=== PATIENT | female | born 1990 | race Caucasian/White ===

== ENCOUNTER 2020-11-23 09:58 | Emergency (ER) | payer SELFPAY ==
[2020-11-23 10:02] VITALS: BP 149/68; PULSE 102; RESP 20; TEMP 36.6; O2SAT 99; BMI 28.3
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
[2020-11-23] MEDS: Ibuprofen 600 MG Tablet PO (11:07)
[2020-11-23] MEDS: Ondansetron ODT 4 MG Tablet 8 MG PO (11:07)
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
[2020-11-23] MEDS: traMADol 50 MG Tablet PO (13:02)
[2020-11-23 13:04] VITALS: BP 134/92; PULSE 68; RESP 17
== END 2020-11-23 13:10 | disposition home or self-care (01) ==
PROVIDERS: Emergency Provider Emergency Medicine; PCP Family Medicine
DX: S09.90XA Unspecified injury of head, initial encounter (principal); S16.1XXA Strain of muscle, fascia and tendon at neck level, initial encounter; S29.012A Strain of muscle and tendon of back wall of thorax, initial encounter; S20.219A Contusion of unspecified front wall of thorax, initial encounter; V43.52XA Car driver injured in collision with other type car in traffic accident, initial encounter
CPT/HCPCS: 70450; 71045; 72072; 72125; 73000; 99285